=== PATIENT | male | born 1970 | race Caucasian/White ===

== ENCOUNTER 2019-01-06 19:05 | Emergency (ER) | payer BC ==
[2019-01-06 19:24] VITALS: BP 120/77
--- NOTE | 2019-01-06 19:49 | UC ---
Skin Complaint HPI - HPI Summary HPI Summary: worsening pain, swelling and erythema of right foot---has been on antibiotics, but also has been up working and not resting and elevating - History of Current Complaint Chief Complaint: UCSkin Time Seen by Provider: 01/06/19 19:30 Stated Complaint: FOOT PAIN Hx Obtained From: Patient Onset/Duration: Gradual Onset, Lasting Days, Worse Since - today Skin Exposure Onset/Duration: Days Ago Timing: Constant Pain Intensity: 2 Pain Scale Used: 0-10 Numeric Location: Discrete Character: Swelling, Pain, Redness Aggravating Factor(s): Nothing Alleviating Factor(s): Nothing Associated Signs & Symptoms: Positive: Negative - Allergy/Home Medications Allergies/Adverse Reactions: Allergies Allergy/AdvReac Type Severity Reaction Status Date / Time banana Allergy Swelling Verified 01/06/19 20:26 Of Face,Lips,& Throat pineapple Allergy Swelling Verified 01/06/19 20:26 Of Face,Lips,& Throat walnut Allergy Swelling Verified 01/06/19 20:26 Of Face,Lips,& Throat MS Amoxicillin [Amoxicillin] AdvReac Severe Nausea And Verified 01/06/19 20:25 Vomiting Home Medications: Home Medications Cephalexin CAP* [Keflex CAP*] 500 mg PO TID 01/06/19 [History Confirmed 01/06/19 ] Cyclobenzaprine TAB* [Flexeril 10 MG TAB*] 10 mg PO TID PRN 01/06/19 [History Confirmed 01/06/19] Naproxen TAB* [Naprosyn 250 mg TAB*] 1 - 2 tab PO BID PRN 01/06/19 [History Confirmed 01/06/19] PMH/Surg Hx/FS Hx/Imm Hx Previously Healthy: Yes - Surgical History Surgical History: Yes Surgery Procedure, Year, and Place: left knee arthroscopy. 7 varicose vein surgeries. wisdom teeth - Family History Known Family History: Positive: None - Social History Occupation: Employed Full-time Lives: With Family Alcohol Use: None Alcohol Amount: sober x 5 years Substance Use Type: None Smoking Status (MU): Heavy Every Day Tobacco Smoker Type: Cigarettes Amount Used/How Often: 1 pack q 2-3 days Review of Systems All Other Systems Reviewed And Are Negative: Yes Constitutional: Positive: Negative Skin: Positive: Other - worsening swelling and erythema right foot Eyes: Positive: Negative ENT: Positive: Negative Respiratory: Positive: Negative Cardiovascular: Positive: Negative Gastrointestinal: Positive: Negative Genitourinary: Positive: Negative Motor: Positive: Negative Neurovascular: Positive: Negative Musculoskeletal: Positive: Negative Neurological: Positive: Negative Psychological: Positive: Negative Is Patient Immunocompromised?: No Physical Exam Triage Information Reviewed: Yes Appearance: Well-Appearing, No Pain Distress, Well-Nourished Vital Signs: Initial Vital Signs Temp 100.8 F 01/06/19 19:18 Pulse 93 01/06/19 19:18 Resp 16 01/06/19 19:18 BP 120/77 01/06/19 19:18 Pulse Ox 98 01/06/19 19:18 Vital Signs Reviewed: Yes Eye Exam: Normal Eyes: Positive: Conjunctiva Clear ENT Exam: Normal ENT: Positive: Normal ENT inspection, Hearing grossly normal. Negative: Trismus , Muffled voice, Hoarse voice Neck exam: Normal Neck: Positive: Supple, Nontender Respiratory Exam: Normal Respiratory: Positive: Chest non-tender, No respiratory distress, No accessory muscle use Cardiovascular Exam: Normal Cardiovascular: Positive: RRR, Pulses Normal, Brisk Capillary Refill Musculoskeletal Exam: Normal Musculoskeletal: Positive: Strength Intact, ROM Intact, Edema @ - right foot Neurological Exam: Normal Neurological: Positive: Alert, Muscle Tone Normal Psychological Exam: Normal Skin: Positive: Other - swelling redness right foot Course/Dx - Course Course Of Treatment: to [facility] [place] [facility] for further evaluation and care - Diagnoses Provider Diagnosis: Cellulitis Discharge - Sign-Out/Discharge Documenting (check all that apply): Patient Departure All imaging exams completed and their final reports reviewed: No Studies - Discharge Plan Condition: Fair Disposition: HOME-RECOMMEND TO ED Patient Education Materials: Cellulitis (DC) Referrals: No Primary Care Phys,NOPCP [Primary Care Provider] - Additional Instructions: please go to hospital for additional assessment and care of your right foot - Billing Disposition and Condition Condition: FAIR Disposition: Home-Recommend to ED
== END 2019-01-06 19:55 | disposition home health service (06) ==
LOC: UCEAST 19:05
DX: L03.115 Cellulitis of right lower limb (principal); Z91.018 Allergy to other foods; Z88.0 Allergy status to penicillin; F17.210 Nicotine dependence, cigarettes, uncomplicated
CPT/HCPCS: 99202; G0463

== ENCOUNTER 2019-01-06 20:13 | Emergency (ER) | payer BC ==
[2019-01-06] MEDS ORDERED: NS 0.9% 1000 ML** 1,000 ML IV.FLUID IV ONE (21:55)
[2019-01-06] MEDS ORDERED: Clindamycin 600 MG IVPREMIX(* 600 MG/50 ML SDV IV ONE ×2 (21:55→22:20)
[2019-01-06] MEDS ORDERED: Acetaminophen TAB* 325 MG PO ONE (21:56)
[2019-01-06 22:20] LABS: ABS Eosinophils 0.1 10^3/ul (0-0.6); ABS Lymphocytes 1.3 10^3/ul (1.0-4.8); ABS Monocytes 0.7 10^3/ul (0-0.8); ABS Neutrophils 6.9 10^3/ul (1.5-7.7); Eosinophil % 0.7 %; Hematocrit 39 % (42-52); Hemoglobin 13.3 g/dL (14.0-18.0); Lymphocyte % 14.8 %; Mean Corpuscular HGB Conc 34 g/dL (31-36); Mean Corpuscular Hemoglobin 30 pg (27-31); Mean Corpuscular Volume 89 fL (80-94); Mean Platelet Volume 7.1 fL (7.4-10.4); Platelet Count 322 10^3/uL (150-450); Red Blood Count 4.38 10^6 /uL (4.18-5.48); Red Cell Distribution Width 13 % (10-15)
[2019-01-06 22:22] LABS: INR 1.15 (0.82-1.09)
--- NOTE | 2019-01-06 22:23 | ED ---
Skin Complaint - HPI Summary HPI Summary: 48-year-old male presents with cellulitis of right foot past 2 days. He states he was diagnosed on Monday with cellulitis and started on Keflex. He states that he has taken two days of keflex. States the redness has been spreading. He has been having fevers. He is able to ambulate. He states area has been swelling. He states only has minimal pain. This has ever had this before. He states that it started about a week ago when he had an itchy area on it with a scratch. He seemed to get better and then he developed a rash about 4 days ago. - History of Current Complaint Chief Complaint: EDSoftTissueLowExtr Time Seen by Provider: 01/06/19 21:39 Stated Complaint: CELLULITIS RT FT PER PT Pain Intensity: 3 - Allergy/Home Medications Allergies/Adverse Reactions: Allergies Allergy/AdvReac Type Severity Reaction Status Date / Time banana Allergy Swelling Verified 01/06/19 20:26 Of Face,Lips,& Throat pineapple Allergy Swelling Verified 01/06/19 20:26 Of Face,Lips,& Throat walnut Allergy Swelling Verified 01/06/19 20:26 Of Face,Lips,& Throat MS Amoxicillin [Amoxicillin] AdvReac Severe Nausea And Verified 01/06/19 20:25 Vomiting PMH/Surg Hx/FS Hx/Imm Hx Endocrine/Hematology History: Denies: Hx Diabetes, Hx Thyroid Disease Cardiovascular History: Denies: Hx Hypertension Respiratory History: Denies: Hx Asthma, Hx Chronic Obstructive Pulmonary Disease (COPD) GI History: Denies: Hx Ulcer - Surgical History Surgery Procedure, Year, and Place: left knee arthroscopy. 7 varicose vein surgeries. wisdom teeth Infectious Disease History: No Infectious Disease History: Denies: Hx Hepatitis, Hx Human Immunodeficiency Virus (HIV), Traveled Outside the [place] in Last 30 Days - Family History Known Family History: Positive: Non-Contributory - Social History Alcohol Use: None Alcohol Amount: sober x 5 years Substance Use Type: Reports: None Smoking Status (MU): Heavy Every Day Tobacco Smoker Type: Cigarettes Amount Used/How Often: 1 pack q 2-3 days Review of Systems Positive: Fever Negative: Chest Pain Negative: Shortness Of Breath Positive: Rash All Other Systems Reviewed And Are Negative: Yes Physical Exam Triage Information Reviewed: Yes Vital Signs On Initial Exam: Initial Vitals Temp Pulse Resp BP Pulse Ox 100.7 F 97 15 145/100 98 01/06/19 20:23 01/06/19 20:23 01/06/19 20:23 01/06/19 20:23 01/06/19 20:23 Vital Signs Reviewed: Yes Appearance: Positive: Well-Appearing Skin: Positive: Warm, Dry, Other - extensive area of erythema to right foot on dorsum of foot Head/Face: Positive: Normal Head/Face Inspection Eyes: Positive: Normal, Conjunctiva Clear ENT: Positive: Pharynx normal Respiratory/Lung Sounds: Positive: Clear to Auscultation, Breath Sounds Present Cardiovascular: Positive: Normal, RRR Musculoskeletal: Positive: Strength/ROM Intact - right foot, Edema Right - foot , Other - good pulses Neurological: Positive: Normal Psychiatric: Positive: Normal Diagnostics - Vital Signs Vital Signs Temp Pulse Resp BP Pulse Ox 01/06/19 20:23 100.7 F 97 15 145/100 98 - Laboratory Lab Results: Lab Results 01/06/19 Range/Units 22:09 WBC 9.0 (3.5-10.8) 10^3/uL RBC 4.38 (4.18-5.48) 10^6 /uL Hgb 13.3 L (14.0-18.0) g/dL Hct 39 L (42-52) % MCV 89 (80-94) fL MCH 30 (27-31) pg MCHC 34 (31-36) g/dL RDW 13 (10-15) % Plt Count 322 (150-450) 10^3/uL MPV 7.1 L (7.4-10.4) fL Neut % (Auto) 76.0 % Lymph % (Auto) 14.8 % [place] % (Auto) 8.3 % Eos % (Auto) 0.7 % Baso % (Auto) 0.2 % Absolute Neuts (auto) 6.9 (1.5-7.7) 10^3/ul Absolute Lymphs (auto) 1.3 (1.0-4.8) 10^3/ul Absolute Monos (auto) 0.7 (0-0.8) 10^3/ul Absolute Eos (auto) 0.1 (0-0.6) 10^3/ul Absolute Basos (auto) 0.0 (0-0.2) 10^3/ul Absolute Nucleated RBC 0.0 10^3/ul Nucleated RBC % 0.0 Result Diagrams: 01/06/19 22:09 01/06/19 22:08 Lab Statement: Any lab studies that have been ordered have been reviewed, and results considered in the medical decision making process. Re-Evaluation - Re-Evaluation First Eval Comment: discussed results, as wbc is normal and is healthy individual will try a course of clindamycin instead Course/Dx - Course Course Of Treatment: 48-year-old male presents with cellulitis of right foot past 2 days. He states he was diagnosed on Monday with cellulitis and started on Keflex. He states that he has taken two days of keflex. States the redness has been spreading. He has been having fevers. He is able to ambulate. He states area has been swelling. He states only has minimal pain. This has ever had this before. He states that it started about a week ago when he had an itchy area on it with a scratch. He seemed to get better and then he developed a rash about 4 days ago. On exam has extensive cellulitis of the right foot. Has a low-grade fever here. Wbc normal. CRP is elevated. Lactic is normal. Discussed admission versus trying a different antibiotic at home. was gave a dose IV Clinda and patient decided will try clindamycin home. Told if no improvement to return. Patient understands agrees with plan. - Differential Diagnoses - Skin Complaint Differential Diagnoses: Abscess, Cellulitis, Contact Dermatitis - Diagnoses Provider Diagnoses: Cellulitis of right foot Discharge - Sign-Out/Discharge Documenting (check all that apply): Patient Departure Patient Received Moderate/Deep Sedation with Procedure: No - Discharge Plan Condition: Good Disposition: HOME Prescriptions: Clindamycin Cap(NF) [Clindamycin Cap 300 mg Cap(NF)] 300 mg PO TID #29 cap Patient Education Materials: Cellulitis (ED) Referrals: José Luis Rutherford MD [Primary Care Provider] - Additional Instructions: return to ED if redness continues to spread, fevers persist or any new or worsening symptoms stop keflex start clindamycin three times a day for 10 days Take tyenlol or ibuprofen as needed for pain Return to ED if develop any new or worsening symptoms - Billing Disposition and Condition Condition: GOOD Disposition: Home
[2019-01-06 22:32] LABS: Albumin/Globulin Ratio 1.4 (1-3); C Reactive Protein 134.56 mg/L (<8.01); Calcium 9.1 mg/dL (8.6-10.3); EGFR African American 96.9 (>60); EGFR Non-African American 80.1 (>60); Globulin 2.9 g/dL (2-4); Potassium 3.6 mmol/L (3.5-5.0); Total Bilirubin 1.4 mg/dL (0.2-1.0); Total Protein 6.9 g/dL (6.4-8.9)
[2019-01-06 23:36] VITALS: BP 129/76
== END 2019-01-06 23:35 | disposition home or self-care (01) ==
LOC: ED 20:13
DX: L03.115 Cellulitis of right lower limb (principal); R50.9 Fever, unspecified; Z88.0 Allergy status to penicillin; F17.210 Nicotine dependence, cigarettes, uncomplicated
CPT/HCPCS: 36415; 80053; 83605; 85025; 85610; 86140; 87040; 96365; 99283; A9270-GY